=== PATIENT | female | born 1960 | race African-American/Black ===

== ENCOUNTER 2019-01-17 05:57 | Day surgery (SDC) | payer BC ==
[~2019-01-17] VITALS: Ht 172.7 cm; Wt 179.1 kg
[2019-01-17 06:14] LABS: HEMATOCRIT 38.5 % (36.0-48.0); HEMOGLOBIN 12.3 g/dL (12-16); MCH 25.8 pg (26.0-34.0); MCHC 31.9 g/dL (31.0-37.0); MCV 80.9 fL (80.0-100.0); MEAN PLATELET VOLUME 8.8 fL (7.4-10.4); RBC 4.76 10x6/uL (4.00-5.40); RDW 15.7 % (11.5-14.5); WBC 9.1 10x3/uL (4.8-10.8)
[2019-01-17 06:21] LABS: ANION GAP 11.5 mmol/L (8-16); CALCIUM 10.5 mg/dL (8.5-10.1); CARBON DIOXIDE 28.3 mmol/L (21.0-32.0); CREATININE - SERUM 0.9 mg/dL (0.6-1.3); POTASSIUM - SERUM 3.8 mmol/L (3.5-5.1)
[2019-01-17] MEDS ORDERED: LISINOPRIL20 MG PO (06:38)
[2019-01-17] MEDS ORDERED: METOPROLOL TART50 MG PO (06:39)
[2019-01-17] MEDS ORDERED: LIPITOR10 MG PO (06:39)
[2019-01-17] MEDS ORDERED: NEURONTIN 300300 MG PO (06:39)
[2019-01-17] MEDS ORDERED: GLUCOPHAGE850 MG PO (06:39)
[2019-01-17] MEDS ORDERED: NORVASC5 MG PO (06:40)
[2019-01-17] MEDS ORDERED: ASPIRIN81 MG PO (06:41)
[2019-01-17 06:49] VITALS: BP 180/110; Ht 172.7 cm; Wt 179.1 kg
--- NOTE | 2019-01-17 09:09 | NUR ---
0900 DAUGHTER AT SIDE, PASSING FLATUS FREELY. ADA FL DIET ORDERED.
--- NOTE | 2019-01-17 19:07 | OP ---
PATIENT NAME: PHILLIP BAUGH MEDICAL RECORD: [id number] :62 LOCATION:D.OPS ADMISSION DATE: SURGEON: HANK LIAO DO DATE OF OPERATION: 01/17/2019 PROCEDURE: Colonoscopy with polypectomy. INDICATIONS FOR PROCEDURE: Screening for colorectal cancer. SCOPE: Olympus video pediatric colonoscope. MEDICATIONS: Propofol 600 mg IV per anesthesia. WITHDRAWAL TIME: 14 minutes. ESTIMATED BLOOD LOSS: Minimal. COMPLICATIONS: None. FINDINGS: Informed consent was given. The patient was made comfortable with the above medication. After reaching an adequate level of sedation by slow IV push, the patient was placed on the left side. A digital rectal examination was performed and was normal. The endoscope was then advanced under direct visualization through the rectum to the cecum, confirmed by the presence of the appendiceal orifice and ileocecal valve. The endoscope was slowly withdrawn. Mucosa was carefully examined. There were 2 polyps visualized on today's procedure. The first was a benign appearing sessile polyp, which measured approximately 5 mm in diameter. It was located in the ascending colon. It was removed using hot forceps. In the descending colon, there was a benign appearing sessile polyp, which measured approximately 4 mm in diameter. It was removed using a hot forceps. There were a few scattered diverticula visualized throughout the entire colon. Retroflexion was performed in the rectum with visualization of grade I internal hemorrhoids without bleeding. The endoscope was withdrawn from the patient. The patient tolerated the procedure well and there were no complications. IMPRESSION: 1. Mild diverticulosis. 2. Grade I internal hemorrhoids without bleeding. 3. Two polyps removed using a hot forceps as described above. PLAN AND RECOMMENDATIONS: 1. Discharge home when recovery parameters are met. 2. Follow up biopsy specimen results. 3. High fiber diet. 4. Continue current medications. 5. Recall colonoscopy in 5 years for surveillance based on a personal history of polyps. TRANSINT:[id number] Voice Confirmation ID: [id number] DOCUMENT ID: [id number] OPERATIVE REPORT [id number] PHILLIP BAUGH HANK LIAO DO at 1907 CC: [id number] DICTATION DATE: 01/17/19 0857 RAIL FILLER: 01/17/19 0921 [facility] 01/17/19 [facility] [address] [place] [address]
== END 2019-01-17 10:15 | disposition home or self-care (01) ==
LOC: D.OPS 05:57
PROVIDERS: Anesthesiology; ATTEND Internal Medicine Gastroenterology
DX: Z12.11 Encounter for screening for malignant neoplasm of colon (principal); K63.5 Polyp of colon